=== PATIENT | male | born 1950 | race Caucasian/White ===

== ENCOUNTER 2018-05-29 05:14 | Observation (INO) | payer MEDICARE ==
[~2018-05-29] VITALS: Ht 170.2 cm; Wt 89.5 kg
[~2018-05-29 05:14] MED LIST: EZET10TA18 PO; GLUC15006 PO; MAG PO; MELATONIN PO; MULT-516 PO; RED600TA PO; VITAMIN B12 PO; [UNRECOGNIZED DRUG - OTHER] PO; [UNRECOGNIZED DRUG - OTHER] PO
[2018-05-29] MEDS ORDERED: ROPIvacaine/PF 0.5%, 30 ML ONE (06:17)
[2018-05-29] MEDS ORDERED: TRANEXAMIC ACID 100 MG/ML, 10ML ONE (06:17)
[2018-05-29] MEDS ORDERED: VANCOMYCIN 1,000 MG ONE (06:18)
[2018-05-29] MEDS ORDERED: FENTANYL PF 250 MCG/5ML ONE (06:27)
[2018-05-29] MEDS ORDERED: MIDAZOLAM 1 MG/ML, 2ML ONE (06:27)
[2018-05-29] MEDS ORDERED: GABAPENTIN 300 MG CAPSULE PO ONE (06:30)
[2018-05-29] MEDS ORDERED: ONDANSETRON ODT 8 MG PO ONE (06:30)
[2018-05-29] MEDS ORDERED: ACETAMINOPHEN 500 MG TABLET PO ONE (06:30)
[2018-05-29] MEDS ORDERED: OxyconTIN ER 20 MG TAB.ER PO ONE (06:30)
[2018-05-29] MEDS ORDERED: SENNA/DOCUSATE TABLET PO PRN (07:00)
[2018-05-29] MEDS ORDERED: morphine SULFATE 10 MG/ML, 1ML IV PRN (07:00)
[2018-05-29] MEDS ORDERED: KETOROLAC 30 MG/1 ML ONE (07:01)
[2018-05-29] MEDS ORDERED: PROPOFOL 10 MG/ML, 20ML ONE (07:41)
[2018-05-29] MEDS ORDERED: BUPIVACAINE/PF 0.25% ONE (07:41)
[2018-05-29] MEDS ORDERED: DEXAMETHASONE 4 MG/ML, 1ML ONE (07:41)
[2018-05-29] MEDS ORDERED: CEFAZOLIN 1,000 MG ONE (07:41)
[2018-05-29] MEDS ORDERED: LIDOCAINE-MPF 2% ,5ML ONE (07:41)
[2018-05-29] MEDS ORDERED: FENTANYL PF 100 MCG/2ML ONE ×2 (07:50→08:48)
[2018-05-29] MEDS ORDERED: ONDANSETRON 2MG/ML, 2ML IV PRN ×2 (08:00→18:30)
[2018-05-29] MEDS ORDERED: PROMETHAZINE 25 MG/ML, 1ML IV PRN (08:00)
[2018-05-29] MEDS ORDERED: HYDROmorphone 2 MG/ML, 1ML IVPush PRN (08:00)
[2018-05-29] MEDS ORDERED: MIDAZOLAM 1 MG/ML, 2ML IV PRN (08:00)
[2018-05-29] MEDS ORDERED: DIAZEPAM 5 MG/ML, 2ML IVPush PRN (08:00)
[2018-05-29] MEDS ORDERED: MEPERIDINE/PF 25MG/0.5ML IVPush PRN (08:00)
[2018-05-29] MEDS ORDERED: OXYcodone 5 MG/5 ML ORAL.SOL UDC PO PRN (08:00)
[2018-05-29] MEDS ORDERED: ALBUTEROL/IPRATROPIUM 2.5MG/0.5MG, 3 ML NPPB PRN (08:00)
[2018-05-29] MEDS ORDERED: SCOPOLAMINE PATCH, 1.5MG PATCH.TD72 TD PRN (08:00)
[2018-05-29] MEDS ORDERED: hydrALAzine 20 MG/ML, 1ML IV PRN (08:00)
[2018-05-29] MEDS ORDERED: MORPHINE SULFATE 4 MG/ML, 1ML ONE (08:18)
[2018-05-29] MEDS ORDERED: MEPERIDINE/PF 25MG/ML,1ML ONE (08:40)
[2018-05-29] MEDS: FENTANYL PF 100 MCG/2ML IV PRN ×2 (08:50→09:00)
[2018-05-29] MEDS ORDERED: TEMPLATE NON-FORMULARY MED. (Glucosamine Hcl** 1,500 MG) PO SCH (09:00)
[2018-05-29] MEDS ORDERED: [UNRECOGNIZED DRUG - OTHER] PO SCH (09:00)
[2018-05-29] MEDS ORDERED: DIAZEPAM 5 MG TABLET PO PRN (11:00)
[2018-05-29] MEDS ORDERED: DIPHENHYDRAMINE 25 MG CAPSULE PO PRN (11:00)
[2018-05-29] MEDS ORDERED: INSULIN REGULAR 100 UNITS/ML, 3ML VIAL SQ-INSULIN SCH (11:00)
[2018-05-29] MEDS ORDERED: OXYcodone/APAP 5/325MG TABLET PO PRN (11:00)
[2018-05-29] MEDS: MULTIVITAMINS/MINERALS TABLET PO SCH (11:16)
[2018-05-29] MEDS: EZETIMIBE 10 MG TABLET PO SCH (11:16)
[2018-05-29] MEDS: SODIUM CHLORIDE 0.9% 1,000 ML IV SCH ×2 (11:32→21:00)
[2018-05-29] MEDS: DOCUSATE 100 MG CAPSULE PO SCH ×2 (11:32→19:58)
[2018-05-29] MEDS: OXYcodone IR 5MG TABLET PO SCH ×4 (11:32→23:54)
[2018-05-29] MEDS ORDERED: ACETAMINOPHEN 325 MG TABLET PO PRN (12:30)
[2018-05-29 13:27] VITALS: BP 111/75
[2018-05-29] MEDS: CEFAZOLIN PMX 2GM/50ML 50 ML IVPB SCH ×2 (15:24→23:56)
[2018-05-29 15:57] VITALS: BP 116/78
[2018-05-29] MEDS: ASPIRIN 325 MG TABLET EC PO SCH (17:59)
[2018-05-29] MEDS ORDERED: ONDANSETRON 4 MG TABLET PO PRN (18:30)
[2018-05-29 18:35] VITALS: BP 126/74
[2018-05-30 01:43] VITALS: BP 119/64
[2018-05-30] MEDS: OXYcodone IR 5MG TABLET PO SCH ×2 (04:00→08:08)
[2018-05-30] MEDS: ASPIRIN 325 MG TABLET EC PO SCH (06:36)
[2018-05-30 07:00] VITALS: BP 116/63
[2018-05-30] MEDS ORDERED: KETOROLAC 30 MG/1 ML IV SCH (07:00)
[2018-05-30] MEDS: SODIUM CHLORIDE 0.9% 1,000 ML IV SCH (07:08)
[2018-05-30] MEDS: EZETIMIBE 10 MG TABLET PO SCH (08:08)
[2018-05-30] MEDS: DOCUSATE 100 MG CAPSULE PO SCH (08:08)
[2018-05-30] MEDS: MULTIVITAMINS/MINERALS TABLET PO SCH (08:08)
[2018-05-30 09:15] VITALS: BP 130/68
== END 2018-05-30 09:20 | disposition home or self-care (01) ==
LOC: OUT 05:14 → ORIP 06:58 → 4NOR 10:25
PROVIDERS: ADMIT Orthopaedic Surgery; ATTEND Orthopaedic Surgery
DX: M17.12 Unilateral primary osteoarthritis, left knee (principal)
CPT/HCPCS: 27447; 73560; 96365; 96366; 96375; 97110; 97162; 97165; C1713; C1776; G0378; J0690; J1100; J1885; J2175; J2250; J2704; J3010; J3490; J7030; Q0162; J2795; J3370

== ENCOUNTER 2018-06-01 13:40 | Observation (INO) | payer MEDICARE ==
[~2018-06-01] VITALS: Ht 170.2 cm; Wt 96.3 kg
[2018-06-01 16:55] VITALS: BP 130/81
[2018-06-01] MEDS ORDERED: OXYC1TAB7 PO (17:48)
[2018-06-01] MEDS ORDERED: HYDR-3245 PO (18:04)
[2018-06-01 20:36] VITALS: BP 126/72
[2018-06-01] MEDS ORDERED: ONDANSETRON 2MG/ML, 2ML IVPush PRN (21:30)
[2018-06-01] MEDS ORDERED: ACETAMINOPHEN 325 MG TABLET PO PRN (21:30)
[2018-06-01] MEDS ORDERED: KETOROLAC 30 MG/1 ML IV PRN (21:30)
[2018-06-01] MEDS ORDERED: MELATONIN 5 MG TABLET ONE (21:43)
[2018-06-01] MEDS: ASPIRIN 325 MG TABLET PO SCH (21:53)
[2018-06-01] MEDS: SODIUM CHLORIDE 0.9% 1,000 ML IV SCH (21:53)
[2018-06-01] MEDS ORDERED: MELATONIN 5 MG TABLET PO SCH (22:00)
[2018-06-01 22:21] LABS: BASOPHILS # (AUTO) 0.05 x10^3/uL (0-0.1); BASOPHILS % (AUTO) 1 % (0-1); EOSINOPHILS # (AUTO) 0.18 x10^3/uL (0-0.4); EOSINOPHILS % (AUTO) 2 % (1-7); LYMPHOCYTES # (AUTO) 1.63 x10^3/uL (1-3.4); LYMPHOCYTES % (AUTO) 14 % (22-44); MD NO; MEAN CORPUSCULAR HEMOGLOBIN 33.9 pg (27.5-34.5); MEAN CORPUSCULAR HGB CONC 34.6 g/dL (33.2-36.2); MEAN PLATELET VOLUME 8.4 fL (7.4-10.4); MONOCYTES # (AUTO) 1.01 x10^3/uL (0.2-0.8); MONOCYTES % (AUTO) 9 % (2-9); NEUTROPHILS # (AUTO) 8.44 x10^3/uL (1.8-6.8); NEUTROPHILS % (AUTO) 75 % (42-75); PLATELET COUNT 197 x10^3/uL (130-400); RED BLOOD COUNT 3.26 x10^6/uL (4.38-5.82); RED CELL DISTRIBUTION WIDTH 12.8 % (9.4-14.8)
[2018-06-01 22:32] LABS: ALBUMIN 2.4 g/dL (3.4-5.0); ANION GAP 4 mmol/L (5-15); CALCIUM 7.9 mg/dL (8.5-10.1); CHLORIDE 103 mmol/L (98-107); CREATININE 1.08 mg/dL (0.7-1.3)
[2018-06-01 23:57] VITALS: BP 131/79
[2018-06-02 00:08] VITALS: BP 131/79
[2018-06-02 05:11] LABS: TROPONIN I 0.073 ng/mL (0.000-0.045)
[2018-06-02 07:31] VITALS: BP 138/82
[2018-06-02] MEDS: SODIUM CHLORIDE 0.9% 1,000 ML IV SCH (08:04)
[2018-06-02] MEDS: ASPIRIN 325 MG TABLET PO SCH ×2 (08:05→20:02)
[2018-06-02] MEDS ORDERED: TEMPLATE NON-FORMULARY MED. (Glucosamine Hcl** 1,500 MG) PO SCH (09:00)
[2018-06-02] MEDS ORDERED: MULTIVITAMIN 1 TABLET PO SCH (09:00)
[2018-06-02] MEDS ORDERED: MELATONIN 5 MG TABLET PO SCH (09:00)
[2018-06-02] MEDS ORDERED: POLYETHYLENE GLYCOL 17 GM PACKET PO SCH (09:00)
[2018-06-02] MEDS ORDERED: EZETIMIBE 10 MG TABLET PO SCH (09:00)
[2018-06-02] MEDS ORDERED: TEMPLATE NON-FORMULARY MED. (Red Yeast Rice** 1,200 MG) PO SCH (09:00)
[2018-06-02 13:27] VITALS: BP 130/77
[2018-06-02] MEDS ORDERED: ACET325T14 PO (17:10)
== END 2018-06-02 20:30 | disposition home or self-care (01) ==
LOC: 5SO 16:44 → INTOOBSV 16:44
PROVIDERS: ADMIT Hospitalist; ATTEND Hospitalist
DX: J96.01 Acute respiratory failure with hypoxia (principal); E78.5 Hyperlipidemia, unspecified; M17.12 Unilateral primary osteoarthritis, left knee; Z96.652 Presence of left artificial knee joint
CPT/HCPCS: 36415; 80048; 82040; 84484; 85025; 93005; 93306; 97162; G0378; G8978; G8979; G8980; J7030